=== PATIENT | female | born 2005 | race Caucasian/White ===

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

== ENCOUNTER 2023-07-19 21:05 | Emergency (ER) | payer OTHER, SELFPAY ==
[2023-07-19 21:25] VITALS: BP 127/68; PULSE 106; RESP 18; TEMP 36.9; O2SAT 99
--- NOTE | 2023-07-19 22:48 | PC.NURSE ---
patient unable to wait. will come back in morning. patient alert and oriented x4.
== END 2023-07-20 01:23 | disposition left against medical advice (07) ==
PROVIDERS: PCP Pediatrics
DX: R50.9 Fever, unspecified (principal)
CPT/HCPCS: 99199

== ENCOUNTER 2023-12-27 18:37 | Emergency (ER) | payer OTHER, SELFPAY ==
[2023-12-27 18:52] VITALS: BP 127/86; PULSE 124; RESP 16; TEMP 39.1; O2SAT 99
--- NOTE | 2023-12-27 19:03 | ED.FEMALEGU ---
HPI - Female Genitourinary General Chief complaint: Urogenital-Female Stated complaint: fever, chills,headache, kidneys hurt Time Seen by Provider: 12/27/23 19:03 Source: patient Mode of arrival: ambulatory Limitations: no limitations History of Present Illness HPI Narrative: 18-year-old female presents with complaint of fatigue, chills, low back pain, suprapubic pain, urinary urgency dysuria starting yesterday. Reports fever today. Did not take any medication to treat fever because she to see that we had temp when she got here. Reports history of urinary tract infection in the fall. Was positive for E coli. All systems reviewed and negative except as noted above. Related Data Home Medications Medication Instructions Recorded Confirmed isotretinoin 40 mg capsule 80 mg PO ONCE 12/27/23 12/27/23 (Accutane) Allergies Allergy/AdvReac Type Severity Reaction Status Date / Time No Known Allergies Allergy Verified 12/27/23 18:40 Review of Systems Review of Systems: CONSTITUTIONAL: reports fever, chills, or sweats. EYES: Denies visual changes, redness, or discharge. ENT: Denies rhinorrhea, congestion, sore throat, or otalgia. CARDIOVASCULAR: Denies chest pain, palpitations, or edema. RESPIRATORY: Denies cough or dyspnea. GASTROINTESTINAL: Denies abdominal pain. Reports nausea. Denies vomiting, or diarrhea. GENITOURINARY: Reports dysuria, urgency. SKIN: Denies rash or itching. MUSCULOSKELETAL: Reports low back pain. Denies joint pain, or myalgia. NEUROLOGIC: Denies headache, numbness, or weakness. PSYCHIATRIC: Denies anxiety or depression. All other systems reviewed are negative, except as documented in HPI. Course Course Level of Care: Express Care Visit Vital Signs Vital signs: Vital Signs Temperature 39.1 C H 12/27/23 18:52 Pulse Rate 124 H 12/27/23 18:52 Respiratory Rate 16 12/27/23 18:52 Blood Pressure 127/86 12/27/23 18:52 Pulse Oximetry 99 12/27/23 18:52 Oxygen Delivery Room Air 12/27/23 18:52 Temperature 39.1 C H 12/27/23 19:11 Pulse Rate 124 H 12/27/23 18:52 Respiratory Rate 16 12/27/23 18:52 Blood Pressure 127/86 12/27/23 18:52 Pulse Oximetry 99 12/27/23 18:52 Oxygen Delivery Room Air 12/27/23 18:52 reviewed, heart rate 100 at discharge. MDM - Female Genitourinary MDM Narrative Medical decision making narrative: Urinalysis normal. Due to patient's viral symptoms did COVID, influenza testing. COVID and influenza test negative. Will culture urine and prescribed antibiotics due to symptoms. Patient is aware of diagnosis, understands and agrees to treatment plan. Anticipatory guidance given. Patient agrees to follow-up as directed and is aware of reasons to seek care at the emergency department. Portions of this record may have been created with voice recognition software Differential Diagnosis Differential diagnosis: Likely urinary tract infection Lab Data Labs: Lab Results 12/27/23 Range/Units 19:10 POC SARS CoV-2 Ag Negative (Negative) Influenza A Screen Negative Reference Range: Negative Influenza B Screen Negative Reference Range: Negative Urine Glucose Negative Reference Range: Negative Urine Bilirubin Negative Reference Range: Negative Urine Ketone Negative Reference Range: Negative Urine Specific [place] 1.025 Reference Range:1.001-1.035 Urine Blood Negative Reference Range: Negative * * Urine pH
[2023-12-27 19:11] VITALS: TEMP 39.1
[2023-12-27] MEDS: ACETAMINOPHEN 500 MG TABLET 1000 MG PO (19:11)
[2023-12-27 19:48] VITALS: PULSE 100; TEMP 39.2
--- NOTE | 2024-01-01 19:27 | ED.FEMALEGU ---
HPI - Female Genitourinary General Chief complaint: Urogenital-Female Stated complaint: fever, chills,headache, kidneys hurt Time Seen by Provider: 12/27/23 19:03 Source: patient Mode of arrival: ambulatory Limitations: no limitations History of Present Illness HPI Narrative: 18 yo F presents with c/o fatigue, bodyaches, chills, low back pain, urinary urgency starting yesterday. no dysuria. Reports hx of UTIs with similar symptoms. did not take any medication prior to arrival to treat fever. Denies vomiting, reports mild nausea. All systems reviewed and negative except as noted above. Related Data Home Medications Medication Instructions Recorded Confirmed isotretinoin 40 mg capsule 80 mg PO ONCE 12/27/23 12/27/23 (Accutane) Allergies Allergy/AdvReac Type Severity Reaction Status Date / Time No Known Allergies Allergy Verified 12/27/23 18:40 Review of Systems Review of Systems: CONSTITUTIONAL: Reports fever, chills, or sweats. EYES: Denies visual changes, redness, or discharge. ENT: Denies rhinorrhea, congestion, sore throat, or otalgia. CARDIOVASCULAR: Denies chest pain, palpitations, or edema. RESPIRATORY: Denies cough or dyspnea. GASTROINTESTINAL: Denies abdominal pain, nausea, vomiting, or diarrhea. GENITOURINARY: Denies dysuria or hematuria. Reports urinary urgency. SKIN: Denies rash or itching. MUSCULOSKELETAL: Reports low back pain. Denies joint pain, or myalgia. NEUROLOGIC: Denies headache, numbness, or weakness. PSYCHIATRIC: Denies anxiety or depression. All other systems reviewed are negative, except as documented in HPI. [facility] Comments At time of signature, agree with nursing past medical, surgical, social and family history. There is no relevant family history pertinent to the presenting complaint. Exam Narrative: GENERAL: This is a well-nourished, well-developed patient, in no apparent distress. HEAD: normocephalic, atraumatic. EYES: PERRL. Sclera clear/white. Vision is grossly intact. EARS: External ears normal, auditory canals clear and without drainage, TMs normal without perforation. Hearing grossly intact. NOSE: External nose normal with no obvious nasal discharge, nares without redness, no rhinorrhea. THROAT: Mucous membranes moist, posterior pharynx clear. NECK: Neck supple, non-tender without lymphadenopathy, masses or thyromegaly. CARDIOVASCULAR: Regular rate and rhythm without murmurs, gallops, or rubs. RESPIRATORY: Clear to auscultation. Breath sounds equal bilaterally. No wheezes, rales, or rhonchi. SKIN: warm, Dry, intact with no suspicious lesions or rash, good texture and turgor. NEURO: awake, alert, and oriented to person, place and time. There were no obvious focal neurologic abnormalities. EXTREMITIES: No joint tenderness, effusion, or edema noted. No calf tenderness. Negative Homans sign bilaterally. BACK: Nontender without deformity. No CVA tenderness. Course Course Level of Care: Express Care Visit Vital Signs Vital signs: Vital Signs Temperature 39.1 C H 12/27/23 18:52 Pulse Rate 124 H 12/27/23 18:52 Respiratory Rate 16 12/27/23 18:52 Blood Pressure 127/86 12/27/23 18:52 Pulse Oximetry 99 12/27/23 18:52 Oxygen Delivery Room Air 12/27/23 18:52 Temperature 39.2 C H 12/27/23 19:48 Pulse Rate 100 12/27/23 19:48 Respiratory Rate 16 12/27/23 18:52 Blood Pressure 127/86 12/27/23 18:52 Pulse Oximetry 99 12/27/23 18:52 Oxygen Delivery Room Air 12/27/23 18:52 Reviewed patient treated with antipyretics prior to discharge. MDM - Female Genitourinary MDM Narrative Medical decision making narrative: Urinalysis. Urine due to symptoms. Negative COVID and influenza. Treat patient with antibiotics due to urinary symptoms past history of UTIs. Patient is aware of diagnosis, understands and agrees to treatment plan. Anticipatory guidance given. Patient agrees to follow-up as directed and is aware of reasons to seek c
== END 2023-12-27 19:48 | disposition home or self-care (01) ==
PROVIDERS: Emergency Provider Nurse Practitioner Family; PCP Pediatrics
DX: N39.0 Urinary tract infection, site not specified (principal); Z20.822 Contact with and (suspected) exposure to COVID-19
CPT/HCPCS: 81003; 87086; 87426; 87804; 99213; A9270; G0463